=== PATIENT | female | born 2005 | race Hispanic/Latino ===

== ENCOUNTER 2025-03-17 10:27 | Day surgery (SDC) | payer BC ==
[2025-03-17 11:05] VITALS: BMI 35.4
[2025-03-17] MEDS ORDERED: hydrALAZINE 20 MG/ML VIAL SLOW IVP PRN (11:21)
== END 2025-03-17 11:50 | disposition home health service, planned readmission (86) ==
LOC: CSHLD/OP 10:27
PROVIDERS: ATTEND Family Medicine
DX: O47.1 False labor at or after 37 completed weeks of gestation (principal); Z3A.37 37 weeks gestation of pregnancy; Z79.899 Other long term (current) drug therapy
CPT/HCPCS: 99284

== ENCOUNTER 2025-04-07 19:00 | Inpatient (IN) | payer BC, OTHER ==
[2025-04-07 21:45] VITALS: BMI 31.4
[2025-04-07] MEDS ORDERED: Lidocaine 1% (PF) 30 ML VIAL SC PRN (22:04)
[2025-04-07] MEDS ORDERED: Oxytocin 30 units/NS 500 ML 500 ML IV SCH ×2 (22:04)
[2025-04-07] MEDS ORDERED: Carboprost 250 MCG/ML AMP IM PRN (22:04)
[2025-04-07] MEDS ORDERED: Acetaminophen 500 MG TAB PO PRN (22:04)
[2025-04-07] MEDS ORDERED: HYDROcodone/Acetaminophen 5/325 mg Tablet PO PRN (22:04)
[2025-04-07] MEDS ORDERED: Methylergonovine 0.2 MG/ML VIAL IM PRN (22:04)
[2025-04-07] MEDS ORDERED: Ondansetron PF 4 MG/2 ML Vial IVP PRN (22:04)
[2025-04-07] MEDS ORDERED: Diphenoxylate HCl/Atropine Tablet PO PRN (22:04)
[2025-04-07] MEDS ORDERED: hydrALAZINE 20 MG/ML VIAL SLOW IVP PRN (22:04)
[2025-04-07] MEDS ORDERED: Tranexamic Acid 1,000 MG/10 ML VIAL IVP PRN (22:04)
[2025-04-07 22:18] LABS: Hematocrit 35.4 % (34.9-44.5); Hemoglobin 12.2 g/dL (12.0-15.5); Mean Corpuscular Hemoglobin 30.0 pg (27.0-33.0); Mean Corpuscular Volume 87.0 fL (81.6-98.3); Platelet Count 185 10x3/uL (150-450); Red Blood Cell (RBC) Count 4.07 10x6/uL (3.90-5.03); White Blood Cell (WBC) Count 7.09 10x3/uL (3.5-10.5)
[2025-04-07 22:43] LABS: Syphilis Antibody Index 0.08 S/CO (<1.00 Non-Reactive)
[2025-04-07 22:44] LABS: Hep B Surf Ag - L&D Non-Reactive S/CO (NonReactive)
[2025-04-08] MEDS: Ibuprofen 800 MG TAB PO PRN (17:27)
[2025-04-08] MEDS ORDERED: hydrALAZINE 20 MG/ML VIAL SLOW IVP PRN (19:29)
[2025-04-08] MEDS ORDERED: Bisacodyl 10 MG SUPP PR PRN (19:29)
[2025-04-08] MEDS ORDERED: Lanolin Ointment 7 GM TUBE TOP PRN (19:29)
[2025-04-08] MEDS ORDERED: Ondansetron PF 4 MG/2 ML Vial IVP PRN (19:29)
[2025-04-08] MEDS ORDERED: Milk Of Magnesia 30 ML UDCUP PO PRN (19:29)
[2025-04-08] MEDS ORDERED: diphenhydrAMINE 25 MG CAP PO PRN (19:29)
[2025-04-09] MEDS: Ibuprofen 800 MG TAB PO SCH (01:20)
[2025-04-09] MEDS: Ferrous Sulfate 325 MG TAB PO SCH (09:10)
[2025-04-09] MEDS: Benzocaine-Menthol 82.5 ML CAN TOP PRN (09:11)
[2025-04-09] MEDS: HYDROcodone/Acetaminophen 5/325 mg Tablet PO PRN (16:20)
[2025-04-10 08:15] VITALS: BP 102/59; TEMP 97.9
== END 2025-04-10 14:45 | disposition home or self-care (01) | DRG 807 ==
LOC: CSHLD 20:36 → CSHPED 04-08 20:40
PROVIDERS: ADMIT Family Medicine; ATTEND Family Medicine
PROC: 3E0DXGC Introduction of Other Therapeutic Substance into Mouth and Pharynx, External Approach (ICD-10-PCS; principal; 2025-04-08)
PROC: 10E0XZZ Delivery of Products of Conception, External Approach (ICD-10-PCS; 2025-04-08)
PROC: 10907ZC Drainage of Amniotic Fluid, Therapeutic from Products of Conception, Via Natural or Artificial Opening (ICD-10-PCS; 2025-04-08)
PROC: 4A1HXCZ Monitoring of Products of Conception, Cardiac Rate, External Approach (ICD-10-PCS; 2025-04-08)
PROC: 0UQGXZZ Repair Vagina, External Approach (ICD-10-PCS; 2025-04-08)
PROC: 0UQMXZZ Repair Vulva, External Approach (ICD-10-PCS; 2025-04-08)
DX: O48.0 Post-term pregnancy (principal); Z37.0 Single live birth; O70.0 First degree perineal laceration during delivery; Z3A.40 40 weeks gestation of pregnancy; Z79.899 Other long term (current) drug therapy; Z79.82 Long term (current) use of aspirin
CPT/HCPCS: 36415; 85027; 86780; 86850; 86900; 86901; 87340; J0595

== ENCOUNTER 2025-04-14 01:17 | Emergency (ER) | payer BC, OTHER ==
[2025-04-14 01:33] LABS: Glucose, Urine (Dipstick) Normal (Negative); Leukocyte 500 (Negative); Protein, Urine (Dipstick) 15 mg/dl (Neg-Trace); Specific Gravity, Urine 1.010 (1.005-1.030)
[2025-04-14 01:39] LABS: RBC/HPF 0-3 HPF (0-3)
[2025-04-14 01:40] LABS: Bacteria/HPF 1+ HPF (None Seen); CAUTI Indications for Culture Dysuria,urgency,freq; Urine Culture Reflex Yes Yes
[2025-04-14] MEDS ORDERED: Ketorolac Tromethamine 30 MG (1 mL) VIAL ONE (01:48)
[2025-04-14 01:51] LABS: #Basophils 0.04 10x3/uL (0.0-0.2); #Eosinophils 0.12 10x3/uL (0.0-0.5); #Monocytes 1.21 10x3/uL (0.0-1.1); #Neutrophils 7.96 10x3/uL (1.5-8.4); %Basophils 0.4 % (0.0-2.0); %Eosinophils 1.1 % (0.0-6.0); %Lymphocytes 14.4 % (18.0-47.0); %Monocytes 11.0 % (0.0-10.0); %Neutrophils 72.5 % (40.0-75.0); Hematocrit 31.7 % (34.9-44.5); Hemoglobin 10.9 g/dL (12.0-15.5); Mean Corpuscular Hemoglobin 30.0 pg (27.0-33.0); Mean Corpuscular Volume 87.3 fL (81.6-98.3); Platelet Count 249 10x3/uL (150-450); Red Blood Cell (RBC) Count 3.63 10x6/uL (3.90-5.03); White Blood Cell (WBC) Count 10.98 10x3/uL (3.5-10.5)
[2025-04-14 02:07] LABS: ALT (SGPT) 24 U/L (Less than 34); AST (SGOT) 26 U/L (11-34); Albumin 3.1 g/dL (3.1-4.5); Alkaline Phosphatase 123 U/L (40-100); Anion Gap 15 mmol/L (10-20); BUN (Urea Nitrogen) 10 mg/dL (7.0-18.7); Bilirubin, Total 0.3 mg/dL (0.3-1.2); Calc. Creatinine Clearance 0 mL/min (70-130); Calcium 8.8 mg/dL (7.8-10.44); Carbon Dioxide 19 mmol/L (22-29); Chloride 106 mmol/L (98-107); Globulin 3.6 g/dL (2.4-3.5); Glucose 96 mg/dL (70-105); Lipase 13 U/L (8-78); Potassium 3.8 mmol/L (3.5-5.1); Sodium 136 mmol/L (136-145)
[2025-04-14] MEDS ORDERED: cefTRIAXone (ROCEPHIN) 1 GM VIAL ONE (02:23)
== END 2025-04-14 04:09 | disposition home or self-care (01) ==
LOC: CSHERS 01:17
DX: N39.0 Urinary tract infection, site not specified (principal)
CPT/HCPCS: 80053; 81001; 83690; 85025; 87086; 87428; 96374; 96375; J0696; J1885